=== PATIENT | male | born 1960 | race Caucasian/White ===

== ENCOUNTER 2021-04-22 22:39 | Inpatient (IN) | payer OTHER ==
[~2021-04-22] VITALS: Ht 170.2 cm; Wt 83.1 kg
[2021-04-22] MEDS ORDERED: ASPIRIN 81MG TABLET PO ONE (23:00)
[2021-04-22 23:29] LABS: EOSINOPHILS % 2.1 % (0.0-5.0); HEMATOCRIT. 47.3 % (42.0-52.0); HEMOGLOBIN. 16.2 g/dL (14.0-18.0); LYMPHOCYTES % 22.1 % (20.0-50.0); MEAN CORPUSCULAR HEMOGLOBIN 31.9 pg (28.0-32.0); MEAN CORPUSCULAR VOLUME 93.1 fL (80.0-94.0); MONOCYTES % 7.4 % (2.0-8.0); NEUTROPHILS % 67.4 % (40.0-76.0); PLATELET 226 x1000/uL (130-400); RED BLOOD CELL COUNT 5.08 mill/uL (4.7-6.1); RED CELL DISTRIBUTION WIDTH 13.1 % (11.6-14.6)
[2021-04-22 23:31] LABS: CHLORIDE 103 mEq/L (98-107)
[2021-04-23] VITALS (12 sets, daily range): BP systolic 133–150; BP diastolic 89–107
[2021-04-23 00:21] LABS: INR 0.9; PARTIAL THROMBOPLASTIN TIME 27.5 sec (23.4-31.0); PROTHROMBIN TIME 10.2 sec (9.6-11.0)
[2021-04-23] MEDS ORDERED: ENOXAPARIN 80MG/0.8ML SYR SUBCUT SCH (01:00)
[2021-04-23] MEDS ORDERED: IOHEXOL-350 100 ML BOTTLE ONE (03:00)
[2021-04-23] MEDS ORDERED: HEPARIN 25,000 UNITS PREMIX 250 ML IV PRN (04:00)
[2021-04-23] MEDS ORDERED: HEPARIN BOLUS PRN aPTT 37-44 IV (04:15)
[2021-04-23] MEDS ORDERED: HEPARIN 25,000 UNITS PREMIX 250 ML IV SCH (04:15)
[2021-04-23] MEDS ORDERED: HEPARIN BOLUS PRN aPTT <36 IV (04:15)
[2021-04-23] MEDS ORDERED: ACETAMINOPHEN 325MG TABLET PO PRN (07:15)
[2021-04-23] MEDS ORDERED: MAGNESIUM/ALUMINUM HYDROXIDE/SIMETHICONE 30ML UDC PO PRN (07:15)
[2021-04-23] MEDS ORDERED: DOCUSATE SODIUM 100MG CAPSULE PO PRN (07:15)
[2021-04-23] MEDS ORDERED: DIPHENHYDRAMINE 50MG/ML VIAL IV PRN (07:15)
[2021-04-23] MEDS ORDERED: LORAZEPAM 2MG/ML CPJ IV PRN (07:15)
[2021-04-23] MEDS ORDERED: GUAIFENESIN 200MG/10ML SUGAR FREE UDC PO PRN (07:15)
[2021-04-23] MEDS ORDERED: HYDRALAZINE 20MG/ML VIAL IV PRN (07:15)
[2021-04-23] MEDS ORDERED: MORPHINE SULFATE 2 MG/ML CPJ (NOT FOR IM USE) IV PRN (07:15)
[2021-04-23] MEDS ORDERED: CLONIDINE 0.1MG TABLET PO PRN (07:15)
[2021-04-23] MEDS ORDERED: IPRATROPIUM/ALBUTEROL 0.5-3(2.5)MG/3ML NEB HHN PRN (07:15)
[2021-04-23] MEDS ORDERED: ONDANSETRON HCL 4MG/2ML INJ IV PRN (07:15)
[2021-04-23 10:19] LABS: BASOPHILS % 0.9 % (0.0-2.0); EOSINOPHILS % 0.6 % (0.0-5.0); HEMATOCRIT. 47.9 % (42.0-52.0); HEMOGLOBIN. 16.1 g/dL (14.0-18.0); LYMPHOCYTES % 17.3 % (20.0-50.0); MEAN CORPUSCULAR HEMOGLOBIN 31.3 pg (28.0-32.0); MEAN CORPUSCULAR VOLUME 93.3 fL (80.0-94.0); MONOCYTES % 8.2 % (2.0-8.0); PLATELET 244 x1000/uL (130-400); RED BLOOD CELL COUNT 5.14 mill/uL (4.7-6.1); RED CELL DISTRIBUTION WIDTH 13.2 % (11.6-14.6)
[2021-04-23 10:21] LABS: CHLORIDE 105 mEq/L (98-107)
[2021-04-23] MEDS: ENOXAPARIN 100MG/ML SYR SUBCUT SCH ×2 (13:00→22:35)
[2021-04-23] MEDS ORDERED: IODIXANOL 320MG/ML 100 ML BOTTLE IV ONE ×2 (14:35→16:04)
[2021-04-23] MEDS ORDERED: FENTANYL CITRATE/PF 50MCG/ML 2ML VIAL ONE (14:39)
[2021-04-23] MEDS ORDERED: MIDAZOLAM HCL 2 MG/2 ML VIAL ONE (14:39)
[2021-04-23] MEDS ORDERED: LIDOCAINE HCL 1% 30ML VIAL (10MG/ML) ONE (14:40)
[2021-04-23] MEDS ORDERED: HEPARIN 1000 UNITS/ML 10ML ONE ×2 (14:43→16:02)
[2021-04-23] MEDS: SODIUM CHLORIDE 0.9% INJ 3ML FLUSH IVF SCH (16:35)
[2021-04-23] MEDS ORDERED: ATROPINE SULFATE 1MG/10ML SYR IV PRN (17:00)
[2021-04-23 19:25] LABS: CREATINE KINASE MB FRACTION 5.5 ng/mL (0.5-3.6)
[2021-04-24] VITALS (20 sets, daily range): BP systolic 114–153; BP diastolic 75–104
[2021-04-24 06:11] LABS: BASOPHILS % 0.8 % (0.0-2.0); EOSINOPHILS % 1.7 % (0.0-5.0); HEMATOCRIT. 42.9 % (42.0-52.0); HEMOGLOBIN. 14.7 g/dL (14.0-18.0); MEAN CORPUSCULAR VOLUME 93.3 fL (80.0-94.0); MEAN PLATELET VOLUME 9.1 fl (7.4-10.4); MONOCYTES % 11.4 % (2.0-8.0); NEUTROPHILS % 57.1 % (40.0-76.0); PLATELET 227 x1000/uL (130-400); RED CELL DISTRIBUTION WIDTH 13.3 % (11.6-14.6)
[2021-04-24 06:26] LABS: CHLORIDE 105 mEq/L (98-107)
[2021-04-24 06:48] LABS: CREATINE KINASE 94 IU/L (39-308)
[2021-04-24 06:51] LABS: CREATINE KINASE MB FRACTION 2.3 ng/mL (0.5-3.6)
[2021-04-24] MEDS: ENOXAPARIN 100MG/ML SYR SUBCUT SCH ×2 (09:05→20:57)
[2021-04-24] MEDS: SODIUM CHLORIDE 0.9% INJ 3ML FLUSH IVF SCH ×2 (14:00→20:58)
[2021-04-25] VITALS: BP 126/89
[2021-04-25 04:00] VITALS: BP 143/101
[2021-04-25] MEDS: SODIUM CHLORIDE 0.9% INJ 3ML FLUSH IVF SCH ×2 (05:04→13:37)
[2021-04-25 07:30] LABS: BASOPHILS % 0.8 % (0.0-2.0); EOSINOPHILS % 1.4 % (0.0-5.0); HEMATOCRIT. 42.5 % (42.0-52.0); HEMOGLOBIN. 14.5 g/dL (14.0-18.0); LYMPHOCYTES % 24.9 % (20.0-50.0); MEAN CORPUSCULAR HEMOGLOBIN 31.8 pg (28.0-32.0); MEAN CORPUSCULAR VOLUME 93.6 fL (80.0-94.0); MEAN PLATELET VOLUME 9.3 fl (7.4-10.4); MONOCYTES % 9.8 % (2.0-8.0); NEUTROPHILS % 63.1 % (40.0-76.0); PLATELET 221 x1000/uL (130-400); RED BLOOD CELL COUNT 4.54 mill/uL (4.7-6.1); RED CELL DISTRIBUTION WIDTH 13.2 % (11.6-14.6)
[2021-04-25 07:46] LABS: CHLORIDE 104 mEq/L (98-107)
[2021-04-25 08:00] VITALS: BP 142/96
[2021-04-25] MEDS: ENOXAPARIN 100MG/ML SYR SUBCUT SCH (08:32)
[2021-04-25 12:00] VITALS: BP 134/92
[2021-04-25 16:00] VITALS: BP 138/97
[2021-04-25 18:03] VITALS: BP 140/82
[2021-04-25] MEDS ORDERED: ENOXAPARIN 80MG/0.8ML SYR SUBCUT SCH (21:00)
== END 2021-04-25 19:05 | disposition home or self-care (01) | DRG 163 ==
LOC: ER 23:27 → MICUSO 04-23 03:58 → EDBEDREQDT 04-23 04:06 → EDBEDREQ 04-23 04:06 → EDBEDREQSVC 04-23 04:06 → EDBEDREQTM 04-23 04:06 → CVICU 04-23 17:50 → 7EST 04-24 18:47
PROVIDERS: ADMIT Internal Medicine; ATTEND Internal Medicine
PROC: 02CR3ZZ Extirpation of Matter from Left Pulmonary Artery, Percutaneous Approach (ICD-10-PCS; principal; 2021-04-23)
PROC: 02CQ3ZZ Extirpation of Matter from Right Pulmonary Artery, Percutaneous Approach (ICD-10-PCS; 2021-04-23)
PROC: 02CP3ZZ Extirpation of Matter from Pulmonary Trunk, Percutaneous Approach (ICD-10-PCS; 2021-04-23)
PROC: 4A023N6 Measurement of Cardiac Sampling and Pressure, Right Heart, Percutaneous Approach (ICD-10-PCS; 2021-04-23)
PROC: B31TYZZ Fluoroscopy of Left Pulmonary Artery using Other Contrast (ICD-10-PCS; 2021-04-23)
PROC: B31SYZZ Fluoroscopy of Right Pulmonary Artery using Other Contrast (ICD-10-PCS; 2021-04-23)
PROC: B519YZZ Fluoroscopy of Inferior Vena Cava using Other Contrast (ICD-10-PCS; 2021-04-23)
DX: I26.02 Saddle embolus of pulmonary artery with acute cor pulmonale (principal); I21.4 Non-ST elevation (NSTEMI) myocardial infarction; J96.01 Acute respiratory failure with hypoxia; I82.432 Acute embolism and thrombosis of left popliteal vein; I82.812 Embolism and thrombosis of superficial veins of left lower extremity; E78.5 Hyperlipidemia, unspecified; Z20.822 Contact with and (suspected) exposure to COVID-19; I50.811 Acute right heart failure; I27.20 Pulmonary hypertension, unspecified; I11.0 Hypertensive heart disease with heart failure; N28.1 Cyst of kidney, acquired; Z91.14 Patient's other noncompliance with medication regimen
CPT/HCPCS: 36415; 37184; 71045; 71275; 75743; 75825; 80048; 80053; 82550; 82553; 83880; 84443; 84484; 85025; 85347; 85379; 87426; 93005; 93306; 93970; 99291; C1760; C1769; C1887; C1893; J1644; J1650; J2250; J3010; J3490; Q9967; C1757